=== PATIENT | female | born 1965 | race Caucasian/White ===

== ENCOUNTER 2019-01-09 14:15 | Emergency (ER) | payer BC ==
--- NOTE | 2019-01-09 14:29 | EDPHY ---
H & P Smoking Status: Never smoked Time Seen by Provider: 01/09/19 14:28 HPI/ROS: Chief complaint. Chest pain HPI. 53-year-old female presents emergency department with chest pain and shortness of breath began 2 hr ago. She is visiting from [place] and arrived 2 days ago. She spent the 1st 2 days in [place] and then went up to [place] and she was going to go for a run. She developed upper abdominal burning type pain and then it progressed up behind her sternum. There was some sense of radiation to the jaw and the back. She took Dea-Rigby and Tums without relief. She had some chills and dizziness. No unusual leg pain or swelling. No fever cough. She did start to have a sore throat last night. She runs regularly and does not have any chest discomfort or shortness of breath with running in the last couple weeks. She has no history of heart, hypertension or diabetes history. ROS 10 systems were reviewed and negative with the exception of the elements mentioned in the history of present illness (Ronaldo Randolph) Past Medical/Surgical History: Healthy Family history aunt with atrial fibrillation (Ronaldo Randolph) Social History: Getting , nonsmoker, no alcohol (Ronaldo Randolph) Physical Exam: General Appearance: Alert pleasant well-developed female mild distress vital signs significant for initial blood pressure 167/104 Eyes: Pupils equal and round no pallor or injection. ENT, Mouth: Mucous membranes are moist. Respiratory: There are no retractions, lungs are clear to auscultation. Cardiovascular: Regular rate and rhythm. Gastrointestinal: Abdomen is soft and nontender, no masses, bowel sounds normal. Neurological: Awake and alert, sensory and motor exams grossly normal. Skin: Warm and dry, no rashes. Musculoskeletal: Neck is supple nontender. Extremities symmetrical, full range of motion. Psychiatric: Patient is oriented X 3, there is no agitation. (Ronaldo Randolph) Constitutional: Initial Vital Signs Temperature (C) 36.9 C 01/09/19 14:23 Heart Rate 62 01/09/19 14:23 Respiratory Rate 16 01/09/19 14:23 Blood Pressure 167/104 H 01/09/19 14:23 O2 Sat (%) 96 01/09/19 14:23 O2 Delivery Mode Room Air Allergies/Adverse Reactions: codeine Allergy (Verified 01/09/19 14:56) Home Medications: Medication Instructions Recorded Sertraline HCl 01/09/19 Medical Decision Making - Diagnostics EKG Interpretation: EKG interpreted by me shows normal sinus rhythm normal interval and axis. QRS is normal there is no significant ST elevation or depression. No arrhythmia. The rate is 59 (Ronaldo Randolph) Procedures: IV normal saline, monitor GI cocktail (Ronaldo Randolph) Differential Diagnosis: Patient really has no risk factors for early coronary artery disease. [place] Because of travel I have considered pulmonary embolus. I have considered acute coronary syndrome. Her symptoms began with burning in the epigastrium and then did radiate up to the retrosternal area. I considered gastritis as well as pancreatitis and GERD (Ronaldo Randolph) Other Provider: Care assumed from Dr. Randolph at 3:00 p.m. With plan for initial and serial troponin. Discharge if serial troponins negative. Initial EKG normal and lipase normal. 1627: reevaluated. Patient has a HEART score of 2. We discussed risk stratification, including the risk of MACE. Patient and family (brother) state understanding and agreement with the chosen disposition. She gets a point for age and a point for history. 1859: 2nd troponin negative. I recommended she consider admission for risk stratification as she does not live in [place], has plans to travel to [place], will not be able to arrange office followup in the next 72 hours. She declined, willing to assume risks including morbidity and mortality of MACE , delay in or inability to diagnose cardiac condition; she is able to make decisions regarding her care. She has continued to be asymptomatic in the emergency department. Return precautions discussed. Mandatory followup when she returns home next week. (Eliazar Morgan) Care Turn Over: at 3:15 p.m. (Ronaldo Randolph) - Data Points Laboratory Results: Laboratory Results 01/09/19 14:29 01/09/19 14:29 Medications Given: Discontinued Medications Al Hydroxide/Mg Hydroxide (Maalox Susp) 30 ml PO ONCE ONE Stop: 01/09/19 14:52 Last Admin: 01/09/19 14:58 Dose: 30 ml Sodium Chloride (Ns) 1,000 mls @ 0 mls/hr IV EDNOW ONE; Wide Open PRN Reason: Protocol Stop: 01/09/19 14:52 Last Admin: 01/09/19 14:59 Dose: 1,000 mls Lidocaine (Lidocaine 2% Viscous) 15 ml PO ONCE ONE Stop: 01/09/19 14:52 Last Admin: 01/09/19 14:58 Dose: 15 ml Point of Care Test Results: Chemistry 01/09/19 01/09/19 18:32 15:28 POC Troponin I 0.01 ng/mL ng/mL 0.00 ng/mL ng/mL (0.00-0.08) (0.00-0.08) Departure - Departure Disposition: Home, Routine, Self-Care Clinical Impression: Chest pain Qualifiers: Chest pain type: unspecified Qualified Code(s): R07.9 - Chest pain, unspecified Condition: Good Instructions: Chest Pain (ED) Additional Instructions: Please follow-up with your primary care doctor as soon as you returns home. Please seek immediate emergency care if you get recurrent symptoms that do not go away right away. Referrals: Jaquelin Khan MD [Medical Doctor] - As per Instructions
[2019-01-09 14:42] LABS: PLATELET COUNT 192 10^3/uL (150-400)
[2019-01-09] MEDS ORDERED: LIDOCAINE 2% VISCOUS 15 ML UDCUP PO ONE (14:51)
[2019-01-09] MEDS ORDERED: NS 1,000 ML IV ONE (14:51)
[2019-01-09] MEDS ORDERED: MAG HYDROX/AL HYDROX/SIMETH 30 ML UDCUP PO ONE (14:51)
--- NOTE | 2019-01-09 15:04 | CPEKG ---
Test Reason : OPEN Blood Pressure : / mmHG Vent. Rate : 059 BPM Atrial Rate : 059 BPM P-R Int : 161 ms QRS Dur : 102 ms QT Int : 409 ms P-R-T Axes : 002 016 013 degrees QTc Int : 406 ms Sinus rhythm Confirmed by Eliazar Morgan ([id number]) on 01/09/2019 3:03:44 PM Referred By: PHYSICIAN ED Confirmed By:Eliazar Morgan
[2019-01-09 19:03] VITALS: BP 119/78
== END 2019-01-09 19:08 | disposition home or self-care (01) ==
DX: R07.9 Chest pain, unspecified (principal); E86.9 Volume depletion, unspecified; Z82.49 Family history of ischemic heart disease and other diseases of the circulatory system
CPT/HCPCS: 84484-ER